=== PATIENT | female | born 1980 | race Caucasian/White ===

== ENCOUNTER 2020-10-28 09:40 | Emergency (ER) | payer MEDICAID ==
[~2020-10-28] VITALS: Ht 154.9 cm; Wt 75.5 kg
[~2020-10-28 09:40] MED LIST: NOCURR
[2020-10-28 09:45] VITALS: BP 135/60
[2020-10-28] MEDS ORDERED: IBUPROFEN 600 MG TABLET PO ONE (10:45)
== END 2020-10-28 11:20 | disposition home or self-care (01) ==
LOC: EMS 09:40
DX: M54.6 Pain in thoracic spine (principal); Z90.89 Acquired absence of other organs
CPT/HCPCS: 99283